=== PATIENT | female | born 1985 | race Two or more races ===

== ENCOUNTER 2022-12-30 18:51 | Emergency (ER) | payer OTHER ==
[~2022-12-30] VITALS: Ht 160 cm; Wt 65.8 kg
[2022-12-30] MEDS ORDERED: LOPRESSOR25 MG PO (19:17)
== END 2022-12-30 23:15 | disposition home or self-care (01) ==
LOC: ER 18:51
DX: T58.8X1A Toxic effect of carbon monoxide from other source, accidental (unintentional), initial encounter (principal); R51.9 Headache, unspecified; Y92.813 Airplane as the place of occurrence of the external cause; I10 Essential (primary) hypertension; Z86.73 Personal history of transient ischemic attack (TIA), and cerebral infarction without residual deficits; I25.2 Old myocardial infarction; I25.10 Atherosclerotic heart disease of native coronary artery without angina pectoris; Y93.89 Activity, other specified